=== PATIENT | female | born 1970 | race Caucasian/White ===

== ENCOUNTER 2025-03-07 15:50 | Emergency (ER) | payer OTHER, SELFPAY ==
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
[2025-03-07 16:19] VITALS: BP 153/99; PULSE 112; RESP 16; TEMP 36.8; O2SAT 99; BMI 21.1
[2025-03-07] MEDS: SULFA/TRIMETHOPRIM 1 TABLET 1 EACH PO (16:36)
[2025-03-07 16:40] VITALS: BP 142/104; PULSE 110; RESP 17; TEMP 36.8; O2SAT 98
== END 2025-03-07 16:42 | disposition home or self-care (01) ==
PROVIDERS: Emergency Provider Student in an Organized Health Care Education/Training Program
DX: S50.812A Abrasion of left forearm, initial encounter (principal); W55.03XA Scratched by cat, initial encounter
CPT/HCPCS: 99283